=== PATIENT | male | born 2000 | race Caucasian/White ===

== ENCOUNTER 2022-12-08 12:11 | Emergency (ER) | payer OTHER ==
[2022-12-08] MEDS ORDERED: Iopamidol 370 76% 100 ML VIAL ONE (12:17)
[2022-12-08] MEDS ORDERED: Lidocaine 1% PF 5 ML VIAL ONE (13:14)
[2022-12-08 14:01] LABS: #Basophils 0.1 10x3/uL (0.0-0.2); #Eosinphils 0.1 10x3/uL (0.0-0.5); #Monocytes 0.4 10x3/uL (0.0-1.1); %Basophils 0.7 % (0.0-2.0); %Eosinophils 1.6 % (0.0-6.0); %Neutrophils 71.6 % (40.0-75.0); Hematocrit 43.5 % (38.8-50.0); Mean Corpuscular HGB CONC 34.5 g/dL (32.0-36.0); Mean Corpuscular Hemoglobin 31.6 pg (27.0-33.0); Mean Corpuscular Volume 91.8 fl (81.2-95.1); Platelet Count 275 10x3/uL (150-450); RBC Distribution Width 12.5 % (11.5-14.5); Red Blood Cell (RBC) Count 4.74 10x6/uL (4.32-5.72)
[2022-12-08 14:10] LABS: ALT (SGPT) 7 U/L (8-55); AST (SGOT) 13 U/L (5-34); Albumin 4.4 g/dL (3.5-5.0); Alkaline Phosphatase 40 U/L (40-110); Anion Gap 13 mmol/L (10-20); BUN (Urea Nitrogen) 11 mg/dL (8.9-20.6); Bilirubin, Total 1.4 mg/dL (0.2-1.2); Calc. Creatinine Clearance 0 mL/min (70-130); Calcium 8.9 mg/dL (7.8-10.44); Carbon Dioxide 29 mmol/L (22-29); Chloride 103 mmol/L (98-107); Estimated GFR 127; Globulin 2.7 g/dL (2.4-3.5); Glucose 95 mg/dL (70-105); Potassium 4.6 mmol/L (3.5-5.1); Protein, Total 7.1 g/dL (6.0-8.3); Sodium 140 mmol/L (136-145)
[2022-12-08 14:17] LABS: Troponin I Less than 0.010 ng/mL (< 0.028)
== END 2022-12-08 16:00 | disposition home or self-care (01) ==
LOC: CSHERS 12:11
DX: S01.81XA Laceration without foreign body of other part of head, initial encounter (principal); S09.90XA Unspecified injury of head, initial encounter; R55 Syncope and collapse; W22.8XXA Striking against or struck by other objects, initial encounter
CPT/HCPCS: 12011; 70450; 71275; 74174; 80053; 84484; 85025; 93005; 96360; 96361; Q9967

== ENCOUNTER 2022-12-15 09:47 | Emergency (ER) | payer OTHER | END 2022-12-15 10:57 | disposition home or self-care (01) | LOC: CSHERS 09:47 | DX: S01.81XD Laceration without foreign body of other part of head, subsequent encounter (principal); W18.30XD Fall on same level, unspecified, subsequent encounter ==